=== PATIENT | male | born 1975 | race Hispanic/Latino ===

== ENCOUNTER 2016-08-21 18:44 | Emergency (ER) | payer SELFPAY ==
[~2016-08-21] VITALS: Ht 162.6 cm; Wt 72.7 kg
[2016-08-21 19:08] VITALS: BP 149/85; PULSE 85; RESP 16; O2SAT 99
--- NOTE | 2016-08-21 21:10 | ED.REPORT ---
HPI-Back Pain 40 and Over Date of Service Aug 21, 2016 ED Provider: Louie Kelley MD Pt is a 41 y/o male presenting to the ED due to bilateral lower back pain onset 3 days ago. Pt has no history of similar symptoms. He decided to come in today because he is having trouble laying down. He denies any mechanism of injury. He denies numbness or weakness of the legs, urinary or bowel incontinence, history of prior back injuries. 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 Nursing Notes Stated Complaint: BACK PAIN Chief Complaint: Back Pain or Injury Nursing Notes Reviewed: Yes Allergies: Coded Allergies: No Known Allergies (Unverified , 08/21/16) Scheduled Methocarbamol (Robaxin-750) 750 Mg Tablet 1,500 MG PO QID Scheduled PRN Ibuprofen (Ibuprofen) 600 Mg Tablet 600 MG PO QID PRN PRN For Pain General Time Seen by MD: 21:10 Chief Complaint Lumbar pain Hx Obtained From: Patient, Other family..., [employer] Arrived By: Walk-in Sudden in Onset?: No Onset Occurred: 3 days ago Symptom Duration: Since onset Caused by: Spontaneous/no mechanism Location: : Perispinal lumbar Quality: Painful Radiation: : Does not radiate Severity: Current: Mild Severity: Maximum: Mild Recent Healthcare: No recent hospitalization Similar Sx Previous: No Past Medical History Past Medical History Denies Past Surgical History None reported Smoking History Never Smoker Social History Alcohol Use: "Social" Ambulatory Status Independent Review of Systems Constitutional: Denies: Chills, Fever Musculoskeletal: Reports: Back pain Neurologic: Denies: Bladder dysfunction, Bowel dysfunction, Numbness, Weakness Complete sys rev & neg: except as marked. Physical Exam Initial Vital Signs Vital Signs (First) Date Time Temp Pulse Resp B/P Pulse Ox O2 Delivery O2 Flow Rate FiO2 08/21/16 19:08 37.3 85 16 149/85 99 Room Air Initial VS: Reviewed, Vital signs normal Head / Eyes: Atraumatic, Normocephalic, PERRL ENT: Mucous membranes moist, Conjunctiva normal, No scleral icterus Neck: Full range of motion Extremities: Vascular intact, Neuro intact Skin: Warm, Dry, No cyanosis Psychiatric: Mood/affect normal, Behavior normal, Normal thought content General/Constitutional: Awake, Alert, No acute distress, Well appearing, Cooperative, Not toxic appearing Respiratory / Chest: No respiratory distress Cardiovascular: Cap refill not delayed, Peripheral circulation NL Abdomen: No distention Back: Atraumatic, Full range of motion, No midline vertebral tend Flank / Spine / Paraspinal: Positive: Lumbar paraspinal tend... (bilat, mild) Mildly guarded range of motion. Neurologic: Oriented X3, Speech NL, No motor deficits, No sensory deficits, Gait NL Interpretation & Diagnostics Lab Results Interpretation Test 08/21/16 19:20 Urine Color Straw (YELLOW) Urine Appearance Clear (CLEAR,HAZY) Urine pH 6.0 (5.0-8.0) Urine Specific [place] 1.010 (1.003-1.035) Urine Protein Negativemg/dL (NEG,TRACE) Urine Glucose (UA) Negativemg/dL (NEGATIVE) Urine Ketones Negativemg/dL (NEGATIVE) Urine Occult Blood Small (NEGATIVE) Urine Nitrite Negative (NEGATIVE) Urine Bilirubin Negative (NEGATIVE) Urine Urobilinogen Normalmg/dL (NORMAL) Urine Leukocyte Esterase Negative (NEGATIVE) Urine RBC 0-2/hpf (0-2) Urine WBC 0-5/hpf (0-5) Urine Epithelial Cells None/hpf (NONE-MOD) Urine Crystals None seen (NONE SEEN) Urine Bacteria Few/hpf (NONE-FEW) Urine Hyaline Casts None/lpf (NONE) Urine Granular Casts None seen (NONE SEEN) Urine Waxy Casts None seen (NONE SEEN) Urine Red Blood Cell Casts None seen (NONE SEEN) Urine White Blood Cell Casts None seen (NONE SEEN) Urine Mucus Present (None Seen) Urine Trichomonas None seen (NONE SEEN) Urine Yeast None (NONE SEEN) Urinalysis Comment None Urine Culture Reflexed Not indicated Hold Urine Received (Received) Re-Eval/Medical Decision Med Decision/Clinical Course Musculoskeletal back pain and an otherwise healthy 41-year-old. No trauma to suggest the need for imaging, no neuropathic symptoms distally. Begun with ibuprofen and Robaxin. Follow-up with PCP. Re-Evaluation/Progress : Time of Eval: 21:15 Re-Evaluation/Progress Note: Pt rechecked. Informed pt of plan for treatment. Pt understands and agrees with plan for treatment. F/U and RTER warnings given. All questions addressed. Counseled Regarding: Diagnosis, Need for follow-up, When/why to return to ED Discharge & Departure Impression: Primary Impression: Low back pain Chronicity: acute Back pain laterality: bilateral Sciatica presence: without sciatica Qualified Code: M54.5 - Low back pain Disposition: Home Discharge Condition All VS Reviewed: Yes Condition: Stable Additional Instructions: Apply Heat frequently but avoid burning your skin. Ibuprofen 600 mg four times daily. Robaxin 1-2 tablets four times daily for spasm. Follow-up with your doctor in the office. Follow-up at [place] if you need a local physician. Return for evaluation if you develop numbness, tingling, weakness, or any bowel or bladder problems. Aplique calor con frecuencia, waldo evite quemar la piel. Mulat Ibuprofen 600 mg cuatro veces al da. Robaxin 1-2 tabletas cuatro veces al da para el espasmo. Seguimiento con solis mdico en la oficina. Seguimiento en [place] si necesita un mdico local. Regrese para solis evaluacin si desarrolla entumecimiento, hormigueo, debilidad o problemas intestinales o urinarios. Referrals: NOPCP (PCP) [facility] Scribe Attestation Portions of this note were transcribed by Farhat Salcido. I, Dr. Kelley personally performed the history, physical exam and medical decision-making; I reviewed and confirmed the accuracy of the information in the transcribed note. Signed by Tessa Maldonado, 08/21/16 - 2111 Louie Kelley MD Aug 21, 2016 21:10 FARHAT SALCIDO Aug 21, 2016 21:17
[2016-08-21] MEDS ORDERED: Ketorolac 30 mg/mL 2 mL Inj IM ONE (21:20)
[2016-08-21] MEDS ORDERED: IBUP-1827 PO (21:23)
[2016-08-21] MEDS ORDERED: METH-313 PO (21:23)
[2016-08-21 21:29] LABS: APPEARANCE,URINE CLEAR (CLEAR,HAZY); COLOR,URINE STRAW (YELLOW); OCCULT BLOOD,URINE SMALL (NEGATIVE); UROBILINOGEN,URINE NORMAL (NORMAL)
[2016-08-21 21:40] VITALS: BP 142/85; PULSE 83; RESP 16; O2SAT 99
== END 2016-08-21 21:41 | disposition home or self-care (01) ==
LOC: SED 18:44
DX: M54.5 Low back pain (principal)
CPT/HCPCS: 81000; 96372; 99284; J1885